=== PATIENT | male | born 1965 | race Caucasian/White ===

== ENCOUNTER 2023-05-22 13:27 | Emergency (ER) | payer OTHER ==
[~2023-05-22] VITALS: Ht 170.1 cm; Wt 90.7 kg
[2023-05-22] MEDS ORDERED: PREDNISONE20 M1 PO (14:55)
== END 2023-05-22 15:15 | disposition home or self-care (01) ==
LOC: ED 13:27
DX: T63.441A Toxic effect of venom of bees, accidental (unintentional), initial encounter (principal); Z88.8 Allergy status to other drugs, medicaments and biological substances; Z90.49 Acquired absence of other specified parts of digestive tract; Y92.89 Other specified places as the place of occurrence of the external cause